=== PATIENT | male | born 1950 | race Caucasian/White ===

== ENCOUNTER 2024-09-16 11:54 | Observation (INO) ==
[2024-09-16 12:51] LABS: ABS Lymphocytes 0.3 10^3/uL (1.0-4.8); ABS Monocytes 0.3 10^3/uL (0.0-1.1); ABS Neutrophils 5.4 10^3/uL (1.5-7.6); Hematocrit 37.3 % (38-53); Hemoglobin 12.6 g/dL (13.2-16.3); Lymphocyte % 5.3 %; Mean Corpuscular Hemoglobin 33.9 pg (27-33); Mean Corpuscular Hgb Conc 33.9 g/dL (31-36); Mean Corpuscular Volume 99.9 fL (80-97); Mean Platelet Volume 9.2 fL (7.5-11.2); Platelet Count 117 10^3/uL (150-450); Red Blood Count 3.73 10^6/uL (4.06-5.63); Red Cell Distribution Width 13.7 % (12-17)
[2024-09-16 12:59] LABS: INR 1.14 (0.85-1.14)
[2024-09-16 13:14] LABS: High Sens Troponin Baseline 28 pg/mL (<20)
[2024-09-16 13:33] LABS: ALT 25 U/L (7-52); AST 32 U/L (13-39); Albumin 3.8 g/dL (3.2-5.2); Albumin/Globulin Ratio 1.7 (1-3); Alcohol, S < 13 mg/dL (<13); Alkaline Phosphatase 85 U/L (35-149); Anion Gap 12 mmol/L (2-16); Blood Urea Nitrogen 29 mg/dL (6-24); CO2 Carbon Dioxide 25 mmol/L (22-32); Calcium 8.7 mg/dL (8.6-10.3); Chloride 100 mmol/L (101-111); Creatine Kinase 176 U/L (10-223); Creatinine, Serum 1.03 mg/dL (0.67-1.17); Globulin 2.2 g/dL (2-4); Glucose 115 mg/dL (70-100); Potassium 4.2 mmol/L (3.5-5.0); Sodium 137 mmol/L (135-145); Total Bilirubin 2.3 mg/dL (0.2-1.0); eGFR CKD-EPI 77.2 (>60)
[2024-09-16] MEDS: Lactated Ringers 1000 ml BAG 1,000 ML IV ONE (13:43)
[2024-09-16 14:17] LABS: High Sensitivity Troponin 1 Hr 29 pg/mL (<20)
[2024-09-16] MEDS: Iohexol 300 (CONTRAST) 10 ML SDV IV ONE (14:58)
[2024-09-16 15:51] LABS: Urine Appearance Clear; Urine Bacteria Absent /HPF (Absent); Urine Bilirubin Negative (Negative); Urine Blood Trace (Negative); Urine Glucose 4+ (>=1000 mg/dL) (Negative); Urine Ketones 2+ (Negative); Urine Nitrite Negative (Negative); Urine Protein 1+ (>=30 mg/dL) (Negative); Urine Red Blood Cell Trace(0-2/hpf) /HPF (0-Trace); Urine Squamous Epithelial Cell Present /HPF (Absent); Urine Urobilinogen Negative (Negative); Urine White Blood Cell Trace(0-5/hpf) /HPF (0-Trace); Urine pH 5.5 (5.0-8.0)
[2024-09-16 16:37] LABS: Urine Color Light-Yellow
[2024-09-16] MEDS: Lidocaine PATCH 5% PATCH TRANSDERM ONE (17:36)
[2024-09-16] MEDS: Orphenadrine Citrate INJ 30 mg/ml 2 ml VIAL (60 mg) IM ONE (18:33)
[2024-09-16] MEDS: Morphine 4 MG/ML VIAL (1 ml) IV ONE (21:59)
[2024-09-17 06:30] LABS: ABS Eosinophils 0.1 10^3/uL (0.0-0.5); ABS Monocytes 0.5 10^3/uL (0.0-1.1); ABS Neutrophils 5.1 10^3/uL (1.5-7.6); Eosinophil % 0.8 %; Hematocrit 35.3 % (38-53); Hemoglobin 11.9 g/dL (13.2-16.3); Lymphocyte % 15.1 %; Mean Corpuscular Hemoglobin 33.7 pg (27-33); Mean Corpuscular Hgb Conc 33.6 g/dL (31-36); Mean Corpuscular Volume 100.2 fL (80-97); Mean Platelet Volume 8.8 fL (7.5-11.2); Platelet Count 103 10^3/uL (150-450); Red Blood Count 3.52 10^6/uL (4.06-5.63); Red Cell Distribution Width 13.9 % (12-17); White Blood Count 6.8 10^3/uL (3.6-10.2)
[2024-09-17 06:51] LABS: Creatinine, Serum 1.01 mg/dL (0.67-1.17); Magnesium 1.9 mg/dL (1.9-2.7); Potassium 3.7 mmol/L (3.5-5.0)
[2024-09-18 06:59] LABS: Calcium 8.5 mg/dL (8.6-10.3); Creatinine, Serum 0.92 mg/dL (0.67-1.17); Magnesium 1.7 mg/dL (1.9-2.7); Potassium 3.7 mmol/L (3.5-5.0); eGFR CKD-EPI 88.4 (>60)
[2024-09-18 07:40] LABS: Hematocrit 35.5 % (38-53); Hemoglobin 12.1 g/dL (13.2-16.3); Mean Corpuscular Hemoglobin 34.2 pg (27-33); Mean Corpuscular Hgb Conc 34.1 g/dL (31-36); Mean Corpuscular Volume 100.3 fL (80-97); Red Blood Count 3.54 10^6/uL (4.06-5.63); Red Cell Distribution Width 13.7 % (12-17); White Blood Count 7.5 10^3/uL (3.6-10.2)
[2024-09-18] MEDS: Potassium Chlor 20 meq TAB.ER PO ONE (08:23)
[2024-09-18] MEDS: Magnesium Sulfate 2 gm BAG 2 GM/50 ML BAG IVPB ONE (08:24)
[2024-09-18 08:31] LABS: ABS Eosinophils 0.1 10^3/uL (0.0-0.5); ABS Lymphocytes 1.2 10^3/uL (1.0-4.8); ABS Monocytes 0.6 10^3/uL (0.0-1.1); ABS Neutrophils 5.6 10^3/uL (1.5-7.6); Eosinophil % 1.3 %; Lymphocyte % 15.9 %; Mean Platelet Volume 9.4 fL (7.5-11.2); Platelet Count 84 10^3/uL (150-450)
[2024-09-19] MEDS ORDERED: Magnesium Hydroxide LIQ 30 ML UDC PO PRN (03:50)
[2024-09-19] MEDS: Morphine 2 MG/ML SYRINGE IV PRN (03:56)
[2024-09-19 07:33] LABS: Calcium 8.5 mg/dL (8.6-10.3); Creatinine, Serum 0.87 mg/dL (0.67-1.17); Magnesium 1.9 mg/dL (1.9-2.7); Potassium 3.7 mmol/L (3.5-5.0); eGFR CKD-EPI 91.7 (>60)
[2024-09-19 07:44] LABS: ABS Eosinophils 0.2 10^3/uL (0.0-0.5); ABS Lymphocytes 1.6 10^3/uL (1.0-4.8); ABS Monocytes 0.5 10^3/uL (0.0-1.1); ABS Nucleated RBC 0.01 10^3/ul; Eosinophil % 3.7 %; Hematocrit 34.2 % (38-53); Hemoglobin 11.7 g/dL (13.2-16.3); Lymphocyte % 24.7 %; Mean Corpuscular Hemoglobin 34.2 pg (27-33); Mean Corpuscular Hgb Conc 34.3 g/dL (31-36); Mean Corpuscular Volume 99.9 fL (80-97); Mean Platelet Volume 9.1 fL (7.5-11.2); Nucleated Red Blood Cells % 0.2 %/100WBC (0.0-0.8); Platelet Count 94 10^3/uL (150-450); Red Blood Count 3.42 10^6/uL (4.06-5.63); Red Cell Distribution Width 13.4 % (12-17); White Blood Count 6.3 10^3/uL (3.6-10.2)
[2024-09-19] MEDS: Polyethylene Glycol 3350 17 GM PACKET PO SCH (10:07)
[2024-09-19] MEDS: Magnesium Hydroxide LIQ 30 ML UDC PO SCH (10:44)
[2024-09-19] MEDS: CMCS: DAPAGLIFLOZIN 10 MG TAB (NF) PO SCH (11:53)
[2024-09-19] MEDS: Senna TAB 8.6 mg TAB PO SCH (20:12)
[2024-09-20] MEDS: Potassium Chloride LIQUID 20 MEQ/15 ML LIQUID PO ONE (09:54)
[2024-09-21] MEDS ORDERED: Senna TAB 8.6 mg TAB PO PRN (14:32)
[2024-09-22 10:24] VITALS: BP 107/79
[2024-09-22 10:42] LABS: Rapid COVID-19 Molecular Undetected (Undetected)
== END 2024-09-22 13:20 ==
LOC: ED 11:54 → EDHOLD 11:54 → SUATTDRO 22:42 → MED 09-17 02:58
PROVIDERS: ADMIT Student in an Organized Health Care Education/Training Program; ATTEND Student in an Organized Health Care Education/Training Program